=== PATIENT | male | born 1990 | race Caucasian/White ===

== ENCOUNTER 2021-08-28 16:54 | Emergency (ER) | payer OTHER ==
[2021-08-28 18:37] LABS: HEMOGLOBIN 14.9 gm/dl (14.0-17.5); RED BLOOD COUNT 4.93 M/UL (4.20-5.50); WHITE BLOOD COUNT 7.8 K/UL (4.5-11.0)
[2021-08-28] MEDS ORDERED: CEPHALEXIN500 M1 PO (19:36)
[2021-08-28] MEDS ORDERED: BACTRIM DS TAB1 EACH PO (19:36)
[2021-08-28 19:40] LABS: BUN/CREATININE RATIO 16 (0-10)
== END 2021-08-28 22:09 | disposition home or self-care (01) ==
LOC: ER1 16:54
PROVIDERS: Physician Assistant
DX: L03.114 Cellulitis of left upper limb (principal); Z88.0 Allergy status to penicillin; F17.200 Nicotine dependence, unspecified, uncomplicated; Z20.822 Contact with and (suspected) exposure to COVID-19
CPT/HCPCS: 73201; 80053; 83605; 85025; 85652; 86140; 87040; 99284; Q9967; U0002